=== PATIENT | female | born 2000 | race Two or more races ===

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

== ENCOUNTER 2022-07-25 16:37 | Emergency (ER) | payer OTHER, SELFPAY ==
[2022-07-25 16:40] VITALS: BP 136/75; PULSE 98; RESP 18; TEMP 37.4; O2SAT 99; BMI 25.6
[2022-07-25 17:10] LABS: Strep A Nucleic Acid Negative (Negative)
[2022-07-25 17:16] LABS: COVID-19 Test Negative (Negative); IDNOW Serial# 16C4AD1C; IDNOW Serial# 9DB6401D; Influenza A Negative (Negative); Influenza B2 Negative (Negative)
--- NOTE | 2022-07-25 18:23 | ED.GENADULT ---
HPI - General Adult General Chief complaint: Fever Stated complaint: fever,sore throat and allergies Time Seen by Provider: 07/25/22 18:23 Source: patient Mode of arrival: ambulatory Limitations: no limitations History of Present Illness HPI narrative: Patient is a 22 year old female presenting to the emergency department today feeling generally unwell. Patient states that all of her kids at home are sick with the flu and now she is feeling generally unwell with intermittent fevers at home. Patient denies any dizziness, lightheadedness, abdominal pain, nausea, vomiting, chills, blurry vision, double vision, loss of vision, chest pain, difficulty breathing, shortness of breath, back pain, night sweats, pain with urination, increased urinary frequency, increased urinary urgency, blood in her urine or stool, syncope or a near syncopal episode, recent trauma or falls, bowel incontinence, bladder incontinence, bowel retention, bladder retention, or any other complaints at this time. Onset (ago): day(s) Severity: mild Severity scale (1-10): 2 Relieving factors: none Exacerbating factors: none Associated symptoms: fever/chills Treatments prior to arrival: none Related Data Previous Rx's Medication Instructions Recorded amoxicillin 500 mg capsule 500 mg PO BID #20 caps 07/22/21 ibuprofen 600 mg tablet 600 mg PO TID PRN fever or pain 07/22/21 #20 tabs Allergies Allergy/AdvReac Type Severity Reaction Status Date / Time aloin [ALOIN] Allergy Unknown REDNESS Unverified 07/11/20 17:13 Review of Systems Constitutional: Constitutional: Reports no additional constitutional complaints, Denies chills, Reports fever(s) and Denies night sweats Eyes: Eyes: Reports no additional eye complaints, Denies blurry vision, Denies change in vision, Denies diplopia, Denies eye discharge, Denies loss of vision and Denies eye pain ENT: Denies dizziness Cardiovascular: Cardiovascular: Reports no additional cardiovascular complaints, Denies chest pain, Denies lightheadedness, Denies Loss of Consciousness and Denies dyspnea Respiratory: Respiratory: Reports no additional respiratory complaints and Denies dyspnea Gastrointestinal: Gastrointestinal: Reports no additional gastrointestinal complaints, Denies abdominal pain, Denies melena, Denies hematochezia, Denies change in bowel habits and Denies change in stool character Genitourinary: Genitourinary: Denies hematuria, Denies urinary frequency, Denies dysuria, Denies urinary incontinence, Denies urinary hesitancy and Denies urinary urgency Musculoskeletal: Musculoskeletal: Reports no additional musculoskeletal complaints, Denies numbness and Denies tingling Neurologic: Denies dizziness, Denies loss of vision, Denies numbness and Denies tingling Psychiatric: Psychiatric: Reports no additional psychiatric complaints Endocrine: Endocrine: Reports no additional endocrine complaints Hematologic/Lymphatic: Hematologic/Lymphatic: Reports no additional hematologic/lymphatic complaints Allergic/Immunologic: Allergic/Immunologic: Reports no additional allergic/immunologic complaints [facility] Past Medical History Attestation statement: The following information was validated with the patient. Source: old records reviewed Medical History (Updated 07/25/22 @ 19:13 by JENNIFER Bahena) No known health problems Palpitations Social History Social History Advance Directives: No Advance Directives Information Provided: No Physical Exam ED Vital Signs: Vital Signs - 24 hr 07/25/22 16:40 07/25/22 18:29 Temperature 99.4 F 98.2 F Pulse Rate 98 93 Respiratory Rate 18 18 Blood Pressure 136/75 122/61 Pulse Oximetry 99 97 Oxygen Delivery Method Room Air Room Air BMI result Body Mass Index 25.6 Const General: cooperative, no acute distress, alert and awake Nutritional Appearance: well nourished Orientation/consciousness: patient oriented x3 Limitations: no limitations [facility]: Yes normal to inspection and Yes atraumatic Ears: hearing grossly normal bilaterally and external ears normal General nose exam: Normal external nose present, no nasal discharge noted and no epistaxis Face and sinus: Yes normal facial exam, No abrasion and No laceration Mouth: Normal oral and palatal mucosa present, no drooling and no muffled voice Eyes General: appearance normal, both eyes and all related structures Periorbital: periorbital findings normal Eyelids: Yes eyelids normal Conjunctivae: conjunctivae normal Pupils: Equal, round and reactive pupils present EOM: EOMs intact bilaterally Neck Neck: Yes normal visual inspection, Yes full ROM and Yes no lymphadenopathy Chest Chest palpation & inspection: normal inspection of the chest Resp Effort & Inspection: normal respiratory effort and able to speak in complete sentences Auscultation: clear to auscultation bilaterally Cardio Rate: regular rate Rhythm: regular rhythm GI Inspection: Yes normal to inspection Neuro General: patient oriented x3 and moves all extremities Cranial nerves: Yes Equal, round and reactive pupils present Cognition (Neuro): normal cognition Motor exam (neuro): 5/5 motor strength present throughout Sensory Exam: Normal double simultaneous stimulation for sensation Coordination: [id number] test normal Extrem General: Yes normal to inspection, Yes full ROM and Yes capillary refill normal Psych Appearance: grossly normal Mental Status: mental status grossly normal Affect: normal affect Attitude: cooperative Thought process: Normal thought process present Thought content: Normal thought content present Insight: Good insight present (Psych) Medical Decision Making MDM Narrative Medical decision making narrative: Patient is a 22 year old female presenting to the emergency department today with a fever and feeling generally unwell. Patient's physical exam was unremarkable. Patient's rapid influenza, covid, and strep tests were all negative. I explained my physical exam findings as well as all test results to the patient. I answered all questions asked by the patient. I stressed the importance of the patient taking her medication as prescribed. I stressed the importance of the patient following up with her primary care provider. I stressed the importance of the patient returning to the emergency department immediately if her symptoms were to worsen or if she were to develop any dizziness, shortness of breath, difficulty breathing, chest pain, blurry vision, loss of vision, nausea, vomiting, abdominal pain, fever, chills, back pain, or any other complaints. Patient verbalized agreement and understanding with this treatment plan and discharge. Medical Records Medical records reviewed: Yes I reviewed the patient's medical records. Lab Data Lab results reviewed: Yes I reviewed the patient's lab results. Labs: Lab Results 07/25/22 07/25/22 07/25/22 Range/Units 16:49 16:49 16:53 COVID-19 (CAMILA) Negative (Negative) COVID-19 Clin Com See Note Influenza Type A (ALYSSIA) Negative (Negative) Influenza Type B (ALYSSIA) Negative (Negative) Influenza A & B Note See Note S. pyogenes GrpA ALYSSIA Negative (Negative) Discharge Plan Discharge Clinical Impression: Viral infection Patient Disposition: Home, Self-Care Instructions: Viral Syndrome (ED) Additional Instructions: Follow up with your primary care provider. Return to the emergency department immediately if your symptoms worsen or if you develop any dizziness, shortness of breath, difficulty breathing, chest pain, blurry vision, loss of vision, nausea, vomiting, abdominal pain, fever, chills, back pain, or any other complaints. Prescriptions: No Action ibuprofen 600 mg tablet 600 mg PO TID PRN (Reason: fever or pain) Qty: 20 0RF amoxicillin 500 mg capsule 500 mg PO BID Qty: 20 0RF Referrals: [facility] Family Medicine [Provider Group] (Call to establish and follow up with a primary care provider. ) [facility] Primary Care, Shreyas [Provider Group] (Call to establish and follow up with a primary care provider. ) [facility] Primary Care,Chaim [Provider Group] (Call to establish and follow up with a primary care provider. ) Stand Alone Forms: Work/School Release Interventions: ED Discharge Assessment Last Done: 07/25/22 18:41 Discharge Date/Time: 07/25/22 18:42 Print Language: Brazilian
[2022-07-25 18:29] VITALS: BP 122/61; PULSE 93; RESP 18; TEMP 36.8; O2SAT 97
--- OUTSIDE RECORDS SUMMARY | 2022-07-25 18:42 | XMS_ITS | Continuity of Care Document ---
:2000 Author Organization [facility] Address [address] [place] [id number]- Care Team Providers Name Role Phone Fabian Betancur MD Primary Care Physician [place] [facility] [place] 12/28/19 [facility] [address] [place] [id number] [facility] Attending Physician: Carlito Taylor MD Referring Physician: Fabian Betancur MD Allergies, Adverse Reactions, Alerts Substance Reaction Severity Status Aloe Vera Active Medications acetaminophen 160 mg/5 ml oral liquid 10 mL = 320 mg, By Mouth, Every 4 hours, PRN as needed for pain, # 120 mL, 0 Refills Start Date: 04/14/09 Stop Date: 05/14/09 Status: Orderedamoxicillin 400 mg/5 ml oral powder for reconstitution 10.5 mL = 840 mg, By Mouth, Every 12 hours, # 147 mL, 0 Refills, HIgh dose for otitis media Start Date: 04/14/09 Stop Date: 04/21/09 Status: OrderedClonidine 0 Refills, Maintenance Start Date: 12/22/11 Status: OrderedConcerta By Mouth, Daily in AM, 0 Refills, Maintenance, 01/30/19 14:11:12 EDT Start Date: 01/30/19 Status: OrderedConcerta By Mouth, Daily in AM, 0 Refills, Maintenance Start Date: 12/22/11 Status: Orderedprozac prozac, Refills 0, Maintenance, 01/30/19 14:10:47 EDT, Compound Start Date: 01/30/19 Status: OrderedSingulair By Mouth, Daily, 0 Refills, Maintenance, 01/30/19 14:11:03 EDT Start Date: 01/30/19 Status: Ordered Problem List Condition Effective Dates Status Health Status Informant ADHD - Attention deficit disorder with Active hyperactivity(Confirmed) Hirsutism(Confirmed) Active Palpitations(Confirmed) Active Vital Signs Most recent to oldest [Reference Range]: 1 Height 156.7 cm (12/21/19 1:41 PM) Weight 66.6 kg (12/21/19 1:41 PM) Pulse Rate [55-90 bpm] 67 bpm (12/21/19 1:41 PM) Body Mass Index [18.5-24.99] 27.12 *H* (12/21/19 1:41 PM) Blood Pressure [80-130/50-80 mm Hg] 107/66 mm Hg (12/21/19 1:41 PM) Dry Weight 66.6 kg (12/21/19 1:41 PM) Social History Social History Type Response Smoking Status Never (less than 100 in life time); Tobacco user in household: No entered on: 01/30/19 Sex
--- OUTSIDE RECORDS SUMMARY | 2022-07-25 18:42 | XMS_ITS | Continuity of Care Document ---
:2000 Author Organization [facility] Address [address] [place] [id number]- Care Team Providers Name Role Phone Fabian Betancur MD Primary Care Physician Encounter [facility] [place] Date(s): 10/26/19 - 11/05/19 [facility] [address] [place] [id number]- [facility] Attending Physician: Admtr, [id number] Admitting Physician: Admtr, Ar8 Referring Physician: Admtr, Ar8 Allergies, Adverse Reactions, Alerts Substance Reaction Severity [...] - Attention deficit disorder with Active hyperactivity(Confirmed) Palpitations(Confirmed) Active Social History Social History Type Response Smoking Status Never (less than 100 in life time); Tobacco user in household: No entered on: 01/30/19 Sex
--- OUTSIDE RECORDS SUMMARY | 2022-07-25 18:42 | XMS_ITS | Continuity of Care Document ---
:2000 Author Organization [facility] Address [address] [place] [id number]- Care Team Providers Name Role Phone Fabian Betancur MD Primary Care Physician Encounter [facility] Date(s): 10/13/19 - 11/25/19 [facility] [address] [place] [id number]- [facility] Attending Physician: Monique Miner MD Allergies, Adverse Reactions, Alerts Substance Reaction [...]
--- OUTSIDE RECORDS SUMMARY | 2022-07-25 18:42 | XMS_ITS | Continuity of Care Document ---
:2000 Author Organization [facility] Address [address] [place] [address]- Care Team Providers Name Role Phone Fabian Betancur MD Primary Care Physician [phone] Encounter [facility] [place] Date(s): 12/21/19 - 12/31/19 [facility] [address] [place] [id number]- [facility] Attending Physician: Admtr, Ar8 Admitting Physician: Admtr, Ar8 Referring Physician: Admtr, [...] with Active hyperactivity(Confirmed) Hirsutism(Confirmed) Active Palpitations(Confirmed) Active Social History Social History Type Response Smoking Status Never (less than 100 in life time); Tobacco user in household: No entered on: 01/30/19 Sex
== END 2022-07-25 18:42 | disposition home or self-care (01) ==
PROVIDERS: Emergency Provider Internal Medicine
DX: B34.9 Viral infection, unspecified (principal); R50.9 Fever, unspecified; J02.9 Acute pharyngitis, unspecified; Z20.822 Contact with and (suspected) exposure to COVID-19
CPT/HCPCS: 36415; 87502; 87635; 87651; 99282; 99283